=== PATIENT | female | born 1955 | race African-American/Black ===

== ENCOUNTER → 2016-05-20 | Outpatient (CLI) | payer OTHER ==
[~2016-05-20] VITALS: Ht 160 cm; Wt 113.0 kg
[~2016-05-20] MED LIST: ALLO100T PO; CELE200C PO; CLOR7.5T3 PO; FURO40TA PO; GAVICHW CHEW; GUAN1TAB PO; INSULIN HUMAN REGULAR 1,000 UNITS/10 ML VIAL SQ PRN; LACTATED RINGER'S 1000 ML IV SCH; LOPE7.5C PO; METOPROLOL TARTRATE 25 MG TAB PO PRN; MONT10TA4 PO; NAPR220C22; NAPR220T95 PO; OLOP0.15; PEPT262C2 CHEW; PROM25TA10 PO; PROPOFOL 200 MG/20 ML AMP IV ONE; SODIUM CHLORID 0.9% 500 ML IV SCH; SPIR50TA PO; SYNT175T PO; TEKT300T PO; VENTAER INH; ZOFR4TAB3 SL; ZYRT10CA PO
[2016-05-20 06:03] VITALS: BP 123/74; PULSE 80; RESP 20; TEMP 98; O2SAT 99
--- NOTE | 2016-05-20 07:46 | GIPROC ---
[facility] [address] [facility]. [facility], [address] COLONOSCOPY PROCEDURE REPORT EXAM DATE: 05/20/2016 PATIENT NAME: Scarlet Reis MR #: [id number] BIRTHDATE: 1955 ENDOSCOPIST: Tammy Nolan MD ORDER #: [id number] ROOF TRUSS BUILDER: Jace Seymour CST and Itzel Chavez RN STATUS: outpatient INDICATIONS: The patient is a 60 yr old female here for a colonoscopy due to average risk patient for colon cancer PROCEDURE PERFORMED: Colonoscopy with polypectomy MEDICATIONS: Per Anesthesia and None. PREP QUALITY: good PREP TYPE:Other: ESTIMATED BLOOD LOSS: None CONSENT: The patient understands the risks and benefits of the procedure and understands that these risks include, but are not limited to: sedation, allergic reaction, infection, perforation and/or bleeding. Alternative means of evaluation and treatment include, among others: physical exam, x-rays, and/or surgical intervention. The patient elects to proceed with this endoscopic procedure. medical equipment was checked for proper function. Hand hygiene and appropriate measures for infection prevention was taken. After the risks, benefits and alternatives of the procedure were thoroughly explained, Informed consent was verified, confirmed and timeout was successfully executed by the treatment team. A digital exam revealed hemorrhoids The Pentax [id number] endoscope was introduced through the anus and advanced to the cecum, which was identified by both the appendix and ileocecal valve. The instrument was then slowly withdrawn as the colon was fully examined. COLON FINDINGS: POLYP-SESSILE HEPATIC FLEXURE-7 MM-COLD POLYPECTOMY. Retroflexed views revealed internal hemorrhoids and Retroflexed views revealed small internal hemorrhoids The scope was then completely withdrawn from the patient and the procedure terminated. PROCEDURE WITHDRAWAL TIME:8minutes ADVERSE EVENTS: There were no complications. IMPRESSIONS: 1. POLYP-SESSILE HEPATIC FLEXURE-7 MM-COLD POLYPECTOMY 2. Retroflexed views revealed internal hemorrhoids 3. Retroflexed views revealed small internal hemorrhoids 4. Revealed hemorrhoids RECOMMENDATIONS: 1. Await biopsy results. Biopsy results will not be ready for 7-10 days. If you don't hear from us in two weeks, call our office for results. 2. Benefiber 2 tsp daily 3. Probiotics from any [facility] or [employer] food store 4. Yearly rectal exams RECALL: Colonoscopy, pending biopsy results Tammy Nolan MD eSigned: Tammy Nolan MD 05/20/2016 7:46 AM cc: Lida Schuster M.D. [id number]
--- NOTE | 2016-05-20 07:57 | GIPROC ---
[facility] [address] [facility]. [facility], [address] EGD PROCEDURE REPORT EXAM DATE: 05/20/2016 PATIENT NAME: Scarlet Reis MR #: [id number] BIRTHDATE: 1955 ATTENDING: Tammy Nolan MD ORDER #: [id number] ACCOUNTANT AUDITOR: Itzel Chavez RN and Jace Seymour CORN CUTTER OPERATOR STATUS: outpatient INDICATIONS: The patient is a 60 yr old female here for an EGD due to REFLUX. HISTORY OF CELIAC DISEASE AND H.PYLORI PROCEDURE PERFORMED: EGD w/ biopsy MEDICATIONS: Per Anesthesia and None. TOPICAL ANESTHETIC: none CONSENT: The patient understands the risks and benefits of the procedure and understands that these risks include, but are not limited to: sedation, allergic reaction, infection, perforation and/or bleeding. Alternative means of evaluation and treatment include, among others: physical exam, x-rays, and/or surgical intervention. The patient elects to proceed with this endoscopic procedure. medical equipment was checked for proper function. Hand hygiene and appropriate measures for infection prevention was taken. After the risks, benefits and alternatives of the procedure were thoroughly explained, Informed consent was verified, confirmed and timeout was successfully executed by the treatment team. The patient was anesthetized with topical anesthesia and the Pentax [id number] endoscope was introduced through the mouth and advanced to the second portion of the duodenum. Retroflexed views revealed a hiatal hernia The gastroscope was then slowly withdrawn and removed. Duodenum normal-biopsy gastrtis antrum-biopsy esophagitis distal esophagus-biopsy. ADVERSE EVENTS: There were no complications. IMPRESSIONS: 1. Duodenum normal-biopsy gastrtis antrum-biopsy esophagitis distal esophagus-biopsy 2. Retroflexed views revealed a hiatal hernia RECOMMENDATIONS: 1. Await biopsy results. Biopsy results will not be ready for 7-10 days. If you don't hear from us in two weeks, call our office for biopsy results. 2. Anti-reflux regimen 3. Avoid NSAIDS PATIENT CONDITION: stable DISPOSITION: Home REPEAT EXAM: EGD Tammy Nolan MD eSigned: Tammy Nolan MD 05/20/2016 7:56 AM cc: Lida Schuster M.D. [id number]
[2016-05-20 08:40] VITALS: BP 120/74; PULSE 62; RESP 18; TEMP 97.7; O2SAT 100
--- NOTE | 2016-05-20 19:44 | EKG ---
Date Performed: 05/20/2016 Time Performed: 06:57:45 PTAGE: 60 years EKG: Sinus rhythm NORMAL ECG PREVIOUS TRACING : 01/02/2013 08.21 Compared to prior tracing no significant change DOCTOR: Neida Toth Interpretating Date/Time 05/20/2016 19:42:49
== END ==
LOC: HSDC 05:05
PROVIDERS: ATTEND Internal Medicine Gastroenterology
DX: Z12.11 Encounter for screening for malignant neoplasm of colon (principal); D12.3 Benign neoplasm of transverse colon; K64.4 Residual hemorrhoidal skin tags; K64.8 Other hemorrhoids; K21.0 Gastro-esophageal reflux disease with esophagitis; K29.50 Unspecified chronic gastritis without bleeding; K44.9 Diaphragmatic hernia without obstruction or gangrene; Z01.810 Encounter for preprocedural cardiovascular examination
CPT/HCPCS: 00810; 43239; 45380; 88305; 88312; 93005; J7120

== ENCOUNTER 2016-08-15 18:33 | Emergency (ER) | payer OTHER ==
[~2016-08-15] VITALS: Ht 162.6 cm; Wt 105.0 kg
[~2016-08-15 18:33] MED LIST changes: -ALLO100T PO; -CELE200C PO; -FURO40TA PO; -GUAN1TAB PO; -INSULIN HUMAN REGULAR 1,000 UNITS/10 ML VIAL SQ PRN; -LACTATED RINGER'S 1000 ML IV SCH; -METOPROLOL TARTRATE 25 MG TAB PO PRN; -NAPR220C22; -PROM25TA10 PO; -PROPOFOL 200 MG/20 ML AMP IV ONE; -SODIUM CHLORID 0.9% 500 ML IV SCH; -ZOFR4TAB3 SL
[2016-08-15 18:36] VITALS: BP 134/88; PULSE 78; RESP 24; TEMP 98.6; O2SAT 93
[2016-08-15] MEDS ORDERED: ALLO100T PO (18:55)
[2016-08-15] MEDS ORDERED: PROM25TA10 PO (18:55)
[2016-08-15] MEDS ORDERED: CELE200C PO (18:55)
[2016-08-15] MEDS ORDERED: FURO40TA PO (18:55)
[2016-08-15] MEDS ORDERED: NAPR220C22 (18:55)
[2016-08-15] MEDS ORDERED: GUAN1TAB PO (18:55)
[2016-08-15] MEDS ORDERED: SODIUM CHLORID 0.9% 500 ML INJ 500 ML IV ONE (19:00)
[2016-08-15] MEDS ORDERED: ONDANSETRON HCL 4 MG/2 ML VIAL IV PUSH ONE (19:00)
--- NOTE | 2016-08-15 19:07 | PD ---
HPI Chief Complaint: GI Complaint Time Seen by Provider: 18:50 Travel History International Travel<30 days: No Contact w/Intl Traveler<30days: No Traveled to known affect area: No History of Present Illness HPI 61-year-old female complains of nausea vomiting diarrhea. The symptoms started this morning. Patient states that the diarrhea has resolved. Patient states that she still had persistent nausea. Patient denies any headache. Patient denies any chest pain or shortness of breath. Patient denies abdominal pain. Patient denies any fever chills. Patient has history of celiac disease and has been seen by GI specialist Dr. Nolan. [facility] Past Medical History Asthma: Yes (USES CPAP AT HS) Heart Rhythm Problems: No Cancer: No Cardiovascular Problems: Yes High Cholesterol: No Congestive Heart Failure: No Diabetes: No Endocrine: Yes GERD: Yes Genitourinary: No Hepatitis: No Hiatal Hernia: Yes Heparin Induced Thrombocytopen: No Hypertension: Yes Immune Disorder: No Musculoskeletal: Yes (OSTEOARTHRITIS) Neurologic: Yes (PAST HX VERTIGO) Psychiatric: No Respiratory: Yes (ASTHMA) Thyroid Disease: Yes (GRAVES DISEASE) Influenza Vaccination: No ?: Not Menopausal: Yes : 3 Para: 3 Tubal Ligation: Yes (1981) Past Surgical History Abdominal Surgery: Yes (REJI) AICD: No Cardiac Surgery: No Cholecystectomy: Yes Coronary Artery Bypass Graft: No Ear Surgery: No Endocrine Surgery: No Eye Surgery: No Genitourinary Surgery: No Gynecologic Surgery: Yes (D & C 2001, TUBAL LIGATION) Joint Replacement: No Oral Surgery: No Pacemaker: No Thoracic Surgery: No Other Surgery: Yes Family History Family Myocardial Infarction: Yes (MOTHER) Social History Alcohol Use: No Tobacco Use: No Substance Use: No Allergies-Medications (Allergen,Severity, Reaction): Coded Allergies: Barley (Verified Allergy, Severe, CELIAC DISEASE, 08/15/16) Diovan (Unverified Allergy, Severe, HIVES, 08/15/16) Egg White (Verified Allergy, Severe, CELIAC DISEASE, 08/15/16) Gluten (Verified Allergy, Severe, CELIAC DISEASE, 08/15/16) Peanut Oil (Verified Allergy, Severe, CELIAC DISEASE, 08/15/16) Percocet (Verified Allergy, Severe, ITCH, 08/15/16) [place] (Verified Allergy, Severe, CELIAC DISEASE, 08/15/16) Wheat (Verified Allergy, Severe, CELIAC DISEASE, 08/15/16) Darvon (Verified Allergy, Intermediate, HIVES, 08/15/16) Hctz (Verified Allergy, Intermediate, HIVES, 08/15/16) Cardura (Verified Allergy, Mild, ITCH, SWELLING, 08/15/16) Clarithromycin (Unverified Allergy, Mild, 08/15/16) Metoprolol (Verified Allergy, Mild, FEET SWELL, 08/15/16) Propranolol (Unverified Allergy, Mild, 08/15/16) Verapamil (Verified Allergy, Mild, PALPITATIONS, 08/15/16) Uncoded Allergies: PINE TREES (Allergy, Severe, NASAL CONGESTION, 11/06/11) Reported Meds & Prescriptions Reported Meds & Active Scripts Active Reported Phenergan (Promethazine HCl) 25 Mg Tablet 25 Mg PO ONCE Guanfacine (Guanfacine HCl) 1 Mg Tab 1 Mg PO HS Do not crush, chew or divide tablet. Take with a meal. Furosemide 40 Mg Tab 40 Mg PO DAILY Aleve (Naproxen Sodium) 220 Mg Capsule Celebrex (Celecoxib) 200 Mg Cap 200 Mg PO BID Allopurinol 100 Mg Tab 100 Mg PO DAILY Olopatadine Nasal [place] 0.6 % Naspr 1 [place] NA DAILY Ventolin Hfa 18 GM Inh (Albuterol Sulfate) 90 Mcg/Act Aer 2 Puff INH Q4-6H PRN Synthroid (Levothyroxine Sodium) 175 Mcg Tab 175 Mcg PO DAILY Imodium A-D (Loperamide HCl) 2 Mg Cap 2 Mg PO DIRECTED PRN One capsule after each loose stool. Not to exceed 8 tablets per day. Aleve (Naproxen Sodium) 220 Mg Tab 220 Mg PO BID PRN Gaviscon (Aluminum Hydroxide-Mag Trisil) 80-14.2 mg Chew 2-4 Tab CHEW QID PRN Maximum 16 tabs/24 hrs Pepto-Bismol (Bismuth Subsalicylate) 262 Mg Chew 524 Mg CHEW DIRECTED PRN Zyrtec Allergy (Cetirizine HCl) 10 Mg Cap 10 Mg PO HS Clorazepate (Clorazepate Dipotassium) 7.5 Mg Tab 7.5 Mg PO BID PRN Montelukast (Montelukast Sodium) 10 Mg Tab 10 Mg PO HS Spironolactone 50 Mg Tab 50 Mg PO DAILY Tekturna (Aliskiren) 300 Mg Tab 300 Mg PO HS Review of Systems General / Constitutional: No: Fever Eyes: No: Visual changes HENT: No: Headaches Cardiovascular: No: Chest Pain or Discomfort Respiratory: No: Shortness of Breath Gastrointestinal: Positive: Nausea, Vomiting, Diarrhea, No: Abdominal Pain Genitourinary: No: Dysuria Musculoskeletal: No: Pain Skin: No Rash Neurologic: No: Weakness Psychiatric: No: Depression Endocrine: No: Polydipsia Hematologic/Lymphatic: No: Easy Bruising Physical Exam Narrative GENERAL: Well-nourished, well-developed patient. SKIN: Focused skin assessment warm/dry. HEAD: Normocephalic. EYES: No scleral icterus. No injection or drainage. NECK: Supple, trachea midline. No JVD or lymphadenopathy. CARDIOVASCULAR: Regular rate and rhythm without murmurs, gallops, or rubs. RESPIRATORY: Breath sounds equal bilaterally. No accessory muscle use. GASTROINTESTINAL: Abdomen soft, non-tender, nondistended. MUSCULOSKELETAL: No cyanosis, or edema. BACK: Nontender without obvious deformity. No CVA tenderness. Neurologic exam normal. Data Data Last Documented VS Vital Signs Date Time Temp Pulse Resp B/P Pulse Ox O2 Delivery O2 Flow Rate FiO2 08/15/16 19:18 20 08/15/16 18:36 98.6 78 134/88 93 Room Air Orders Complete Blood Count With Diff (08/15/16 19:00) Basic Metabolic Panel (Bmp) (08/15/16 19:00) Urinalysis - C+S If Indicated (08/15/16 19:00) Iv Access Insert/Monitor (08/15/16 19:00) Ecg Monitoring (08/15/16 19:00) Oximetry (08/15/16 19:00) Sodium Chlorid 0.9% 500 Ml Inj (Ns 500 M (08/15/16 19:00) Ondansetron Inj (Zofran Inj) (08/15/16 19:00) Labs Laboratory Tests Test 08/15/16 08/15/16 19:10 19:20 White Blood Count 7.3 TH/MM3 Red Blood Count 5.58 MIL/MM3 Hemoglobin 14.7 GM/DL Hematocrit 44.1 % Mean Corpuscular Volume 79.1 FL Mean Corpuscular Hemoglobin 26.3 PG Mean Corpuscular Hemoglobin 33.3 % Concent Red Cell Distribution Width 14.7 % Platelet Count 288 TH/MM3 Mean Platelet Volume 7.6 FL Neutrophils (%) (Auto) 68.2 % Lymphocytes (%) (Auto) 24.0 % Monocytes (%) (Auto) 5.9 % Eosinophils (%) (Auto) 1.1 % Basophils (%) (Auto) 0.8 % Neutrophils # (Auto) 5.0 TH/MM3 Lymphocytes # (Auto) 1.8 TH/MM3 Monocytes # (Auto) 0.4 TH/MM3 Eosinophils # (Auto) 0.1 TH/MM3 Basophils # (Auto) 0.1 TH/MM3 CBC Comment DIFF FINAL Differential Comment Sodium Level 137 MEQ/L Potassium Level 4.4 MEQ/L Chloride Level 100 MEQ/L Carbon Dioxide Level 27.4 MEQ/L Anion Gap 10 MEQ/L Blood Urea Nitrogen 22 MG/DL Creatinine 1.13 MG/DL Estimat Glomerular Filtration 59 ML/MIN Rate Random Glucose 92 MG/DL Calcium Level 9.8 MG/DL Urine Color YELLOW Urine Turbidity CLEAR Urine pH 5.5 Urine Specific [place] 1.017 Urine Protein NEG mg/dL Urine Glucose (UA) NEG mg/dL Urine Ketones NEG mg/dL Urine Occult Blood NEG Urine Nitrite NEG Urine Bilirubin NEG Urine Urobilinogen LESS THAN 2.0 MG/DL Urine Leukocyte Esterase NEG Urine RBC 2 /hpf Urine WBC 2 /hpf Urine Squamous Epithelial 5 /hpf Cells Urine Bacteria RARE /hpf Urine Hyaline Casts 1 /lpf Urine Mucus FEW /lpf Microscopic Urinalysis Comment CULT NOT INDICATED MDM Medical Decision Making Medical Screen Exam Complete: Yes Emergency Medical Condition: Yes Interpretation(s) 2016 p.m. CBC within normal limit. BMP within normal limit. BUN 22. Creatinine 1.13. Differential Diagnosis Differential diagnosis including gastroenteritis, dehydration, electrolyte imbalance, gastritis, PUD, pancreatitis, cholecystitis, colitis, UTI, pyelonephritis. Narrative Course 61-year-old female with nausea vomiting diarrhea. Normal saline solution 500 cc IV bolus. Zofran 4 mg IV. Diagnosis Primary Impression: Gastroenteritis Patient Instructions: General Instructions Additional Instructions: Zofran as needed for nausea vomiting. Clear fluids tonight and advance diet tomorrow. Follow-up as needed. Return if persistent problem or worse. Med/Other Pt SpecificInfo: Prescription(s) given Scripts Ondansetron Odt (Zofran Odt)4 Mg Tab4 Mg SL Q6HR PRN (Nausea/Vomiting) #10 TAB Prov:Fahad Villa MD 08/15/16 Disposition: 01 DISCHARGE HOME Condition: Stable Fahad Villa MD Aug 15, 2016 19:07
[2016-08-15 19:18] VITALS: RESP 20
[2016-08-15 19:39] LABS: BASOPHIL # 0.1 TH/MM3 (0-0.2); BASOPHIL % 0.8 % (0.0-2.0); EOSINOPHIL # 0.1 TH/MM3 (0-0.4); EOSINOPHIL % 1.1 % (0.0-4.0); HEMATOCRIT 44.1 % (35.0-46.0); HEMO FLAGS DIFF FINAL; LYMPHOCYTE # 1.8 TH/MM3 (1.0-4.8); MEAN CELL VOLUME 79.1 FL (80.0-100.0); MEAN CORPUSCULAR HEMOGLOBIN 26.3 PG (27.0-34.0); MEAN CORPUSCULAR HGB CONC 33.3 % (32.0-36.0); MONO % 5.9 % (0.0-8.0); NEUT % 68.2 % (16.0-70.0); PLATELET COUNT 288 TH/MM3 (150-450); RED BLOOD COUNT 5.58 MIL/MM3 (4.00-5.30); RED CELL DISTRIBUTION WIDTH 14.7 % (11.6-17.2); WHITE BLOOD COUNT 7.3 TH/MM3 (4.0-11.0)
[2016-08-15 19:49] LABS: BACTERIA, URINE RARE /hpf; BLOOD, URINE NEG (NEG); GLUCOSE,URINE NEG (NEG); HYALINE CAST, URINE 1 /lpf (RARE); KETONE, URINE NEG (NEG); MUCUS URINE FEW /lpf (OCC); NITRITE,URINE NEG (NEG); PH, URINE 5.5 (5.0-8.5); SQUAMOUS EPITHELIAL CELL URINE 5 /hpf (0-5); URINE COLOR YELLOW (YELLW/STRAW)
[2016-08-15 19:52] LABS: COMMENT (UR) CULT NOT INDICATED; CULTURE IF INDICATED CULT NOT INDICATED
[2016-08-15 20:05] LABS: BICARBONATE 27.4 MEQ/L (21.0-32.0); POTASSIUM 4.4 MEQ/L (3.5-5.1)
[2016-08-15] MEDS ORDERED: ZOFR4TAB3 SL (20:20)
== END 2016-08-15 20:39 | disposition home or self-care (01) ==
LOC: NEPD 18:33
DX: K52.9 Noninfective gastroenteritis and colitis, unspecified (principal); J45.909 Unspecified asthma, uncomplicated; I10 Essential (primary) hypertension
CPT/HCPCS: 80048; 81001; 85025; 96374; 96375; 99284; J2405; J7040